=== PATIENT | female | born 1930 | race African-American/Black ===

== ENCOUNTER 2017-03-01 15:03 | Emergency (ER) | payer MEDICAID, MEDICARE ==
[~2017-03-01] VITALS: Ht 167.6 cm; Wt 67.0 kg
[~2017-03-01 15:03] MED LIST: AMLODIPINE; CARI350T27 PO; CYCL30DR EACHEYE; DOCU-138; ERGO500043 PO; GABA-531; HCTZ; HYDR25TA PO; LIDODERM; OMEP20CA10; PRED10DR7; SIMV40TA5 PO; SIMVASTATIN; [UNRECOGNIZED DRUG - CODE]
[2017-03-01 16:50] LABS: BASOPHILS % 0.9 % (0.0-2.0); EOSINOPHILS % 0.4 % (0.0-5.0); HEMATOCRIT. 40.6 % (36.0-48.0); HEMOGLOBIN. 13.3 g/dL (12.0-16.0); LYMPHOCYTES % 23.7 % (20.0-50.0); MEAN CORPUSCULAR HEMOGLOBIN 31.6 pg (28.0-32.0); MEAN CORPUSCULAR HGB CONC 32.7 g/dL (31.0-37.0); MEAN CORPUSCULAR VOLUME 96.6 fL (81.0-99.0); MONOCYTES % 7.7 % (2.0-8.0); NEUTROPHILS % 67.3 % (40.0-76.0); RED CELL DISTRIBUTION WIDTH 13.7 % (11.6-14.6); WHITE BLOOD COUNT 4.9 x1000/uL (4.5-11.0)
[2017-03-01 16:53] LABS: CHLORIDE 104 mEq/L (98-107); DIFFERENTIAL COMMENT 1; INDEX HEMOLYSI 1 (1-3); INDEX ICTERIC 1 (1-4); INDEX LIPEMIC 1 (1-3); INR 1.2; PROTHROMBIN TIME 12.4 sec
[2017-03-01 17:03] LABS: ALANINE AMINOTRANSFERASE 22 IU/L (13-61); ALBUMIN 3.9 g/dL (3.4-5.0); ANION GAP 11; CALCIUM 9.4 mg/dL (8.5-10.1); CARBON DIOXIDE 30 mEq/L (21-32); NT PRO B-TYPE NATRIURETIC PEP 126 pg/mL (5-125); TROPONIN I < 0.02 ng/mL (0.00-0.04); UREA NITROGEN BLOOD 17 mg/dL (7-21); eGFR 57 mL/min (>60)
[2017-03-01 17:06] LABS: MEAN PLATELET VOLUME 10.2 fl (7.4-10.4); PLATELET 129 x1000/uL (130-400)
[2017-03-01] MEDS ORDERED: ASPIRIN 81MG TABLET PO ONE (17:45)
[2017-03-01 19:16] VITALS: BP 120/65
== END 2017-03-01 19:21 | disposition home or self-care (01) ==
LOC: ER 15:03
DX: R07.89 Other chest pain (principal); K21.9 Gastro-esophageal reflux disease without esophagitis; E78.00 Pure hypercholesterolemia, unspecified; I10 Essential (primary) hypertension; Z98.1 Arthrodesis status; Z87.891 Personal history of nicotine dependence
CPT/HCPCS: 36415; 71010; 80053; 83880; 84484; 85025; 85610; 93005; 99285

== ENCOUNTER 2017-03-09 10:12 | Emergency (ER) | payer MEDICARE ==
[~2017-03-09] VITALS: Ht 170.2 cm; Wt 66.0 kg
[2017-03-09] MEDS ORDERED: IOHEXOL-300 100 ML BOTTLE ONE (10:55)
[2017-03-09] MEDS ORDERED: SODIUM CHLORIDE 0.9% 10ML VIAL ONE (10:55)
[2017-03-09] MEDS ORDERED: FAMOTIDINE 20MG/2ML VIAL IV STA (11:32)
[2017-03-09 12:13] LABS: CLARITY URINE CLEAR (CLEAR); COLOR URINE YELLOW (YELLOW); GLUCOSE URINE NEGATIVE (NEGATIVE); KETONES URINE TRACE (NEGATIVE); LEUKOCYTE ESTERASE URINE NEGATIVE (NEGATIVE); NITRITE URINE NEGATIVE (NEGATIVE); OCCULT BLOOD URINE NEGATIVE (NEGATIVE); PH URINE 7.5 (4.5-8.0); PROTEIN URINE NEGATIVE (NEGATIVE); SPECIFIC GRAVITY URINE 1.014 (1.005-1.030); UROBILINOGEN URINE 0.2 E.U./dL (0.2-1.0)
[2017-03-09 12:23] LABS: DIFFERENTIAL COMMENT 0; EOSINOPHILS % 0.4 % (0.0-5.0); HEMATOCRIT. 39.7 % (36.0-48.0); HEMOGLOBIN. 13.1 g/dL (12.0-16.0); LYMPHOCYTES % 20.8 % (20.0-50.0); MEAN CORPUSCULAR HEMOGLOBIN 31.4 pg (28.0-32.0); MEAN CORPUSCULAR HGB CONC 33.1 g/dL (31.0-37.0); MEAN CORPUSCULAR VOLUME 95.1 fL (81.0-99.0); MEAN PLATELET VOLUME 10.4 fl (7.4-10.4); MONOCYTES % 4.5 % (2.0-8.0); NEUTROPHILS % 73.3 % (40.0-76.0); PLATELET 129 x1000/uL (130-400); RED BLOOD CELL COUNT 4.18 mill/uL (4.2-5.4); RED CELL DISTRIBUTION WIDTH 13.6 % (11.6-14.6); WHITE BLOOD COUNT 5.3 x1000/uL (4.5-11.0)
[2017-03-09 12:29] LABS: INR 1.2; PROTHROMBIN TIME 12.6 sec
[2017-03-09 12:30] LABS: CHLORIDE 106 mEq/L (98-107); INDEX HEMOLYSI 1 (1-3); INDEX ICTERIC 1 (1-4); INDEX LIPEMIC 1 (1-3)
[2017-03-09 12:33] LABS: ALBUMIN 3.8 g/dL (3.4-5.0); CALCIUM 9.1 mg/dL (8.5-10.1)
[2017-03-09 12:40] LABS: ALANINE AMINOTRANSFERASE 24 IU/L (13-61); ANION GAP 10; CARBON DIOXIDE 28 mEq/L (21-32); LIPASE 184 IU/L (73-393); UREA NITROGEN BLOOD 17 mg/dL (7-21); eGFR > 60 mL/min (>60)
[2017-03-09 12:42] LABS: TROPONIN I < 0.02 ng/mL (0.00-0.04)
[2017-03-09 14:49] VITALS: BP 133/76
== END 2017-03-09 14:54 | disposition home or self-care (01) ==
LOC: ER 11:10
DX: R10.11 Right upper quadrant pain (principal); K21.9 Gastro-esophageal reflux disease without esophagitis; E78.00 Pure hypercholesterolemia, unspecified; I10 Essential (primary) hypertension; Z79.899 Other long term (current) drug therapy; Z87.891 Personal history of nicotine dependence; Z90.710 Acquired absence of both cervix and uterus
CPT/HCPCS: 36415; 74177; 80053; 81003; 83605; 83690; 84484; 85025; 85610; 93005; 96374; 99285; A4216; J3490; Q9967

== ENCOUNTER 2017-03-25 10:57 | Emergency (ER) | payer MEDICARE, MEDICAID ==
[~2017-03-25] VITALS: Ht 170.2 cm; Wt 66.0 kg
[2017-03-25 11:57] LABS: BASOPHILS % 0.6 % (0.0-2.0); DIFFERENTIAL COMMENT 0; EOSINOPHILS % 0.8 % (0.0-5.0); HEMATOCRIT. 38.8 % (36.0-48.0); HEMOGLOBIN. 12.8 g/dL (12.0-16.0); LYMPHOCYTES % 24.3 % (20.0-50.0); MEAN CORPUSCULAR HEMOGLOBIN 31.5 pg (28.0-32.0); MEAN CORPUSCULAR VOLUME 95.5 fL (81.0-99.0); MEAN PLATELET VOLUME 9.4 fl (7.4-10.4); NEUTROPHILS % 66.3 % (40.0-76.0); PLATELET 142 x1000/uL (130-400); RED BLOOD CELL COUNT 4.06 mill/uL (4.2-5.4); RED CELL DISTRIBUTION WIDTH 13.5 % (11.6-14.6); WHITE BLOOD COUNT 4.4 x1000/uL (4.5-11.0)
[2017-03-25 12:04] LABS: CHLORIDE 103 mEq/L (98-107); INDEX HEMOLYSI 1 (1-3); INDEX ICTERIC 1 (1-4); INDEX LIPEMIC 1 (1-3)
[2017-03-25 12:06] LABS: INR 1.2; PROTHROMBIN TIME 12.7 sec
[2017-03-25 12:12] LABS: ALANINE AMINOTRANSFERASE 23 IU/L (13-61); ANION GAP 13; CALCIUM 9.4 mg/dL (8.5-10.1); CARBON DIOXIDE 28 mEq/L (21-32); UREA NITROGEN BLOOD 22 mg/dL (7-21); eGFR > 60 mL/min (>60)
[2017-03-25 13:17] VITALS: BP 128/70
== END 2017-03-25 13:46 | disposition home or self-care (01) ==
LOC: ER 12:19
DX: H92.03 Otalgia, bilateral (principal); R79.89 Other specified abnormal findings of blood chemistry; K21.9 Gastro-esophageal reflux disease without esophagitis; E78.00 Pure hypercholesterolemia, unspecified; I10 Essential (primary) hypertension; Z79.899 Other long term (current) drug therapy; Z90.710 Acquired absence of both cervix and uterus; Z87.891 Personal history of nicotine dependence
CPT/HCPCS: 36415; 70450; 71010; 80053; 85025; 85610; 85651; 93005; 99285

== ENCOUNTER 2017-05-14 10:17 | Emergency (ER) | payer MEDICARE ==
[~2017-05-14] VITALS: Ht 167.6 cm; Wt 72.0 kg
[~2017-05-14 10:17] MED LIST changes: +ERGO500013 PO; -ERGO500043 PO
[2017-05-14 11:10] VITALS: BP 130/60
[2017-05-14] MEDS ORDERED: ACETAMINOPHEN 325MG TABLET PO ONE (11:45)
== END 2017-05-14 14:01 | disposition home or self-care (01) ==
LOC: ER 12:19
DX: H61.23 Impacted cerumen, bilateral (principal); I10 Essential (primary) hypertension; E78.00 Pure hypercholesterolemia, unspecified; Z90.710 Acquired absence of both cervix and uterus; Z98.890 Other specified postprocedural states; Z90.89 Acquired absence of other organs
CPT/HCPCS: 99282

== ENCOUNTER → 2017-07-07 | Outpatient (CLI) | payer MEDICARE, MEDICAID | END | disposition home or self-care (01) | LOC: MAMMO 10:12 | PROVIDERS: ATTEND Internal Medicine | DX: Z12.31 Encounter for screening mammogram for malignant neoplasm of breast (principal) | CPT/HCPCS: G0202 ==

== ENCOUNTER 2017-07-25 10:28 | Emergency (ER) | payer MEDICARE, MEDICAID ==
[~2017-07-25] VITALS: Ht 167.6 cm; Wt 65.0 kg
[2017-07-25] MEDS ORDERED: SODIUM CHLORIDE 0.9% 500 ML IV ONE (11:08)
[2017-07-25 11:37] LABS: BASOPHILS % 0.6 % (0.0-2.0); EOSINOPHILS % 0.6 % (0.0-5.0); HEMATOCRIT. 37.5 % (36.0-48.0); HEMOGLOBIN. 12.5 g/dL (12.0-16.0); LYMPHOCYTES % 22.4 % (20.0-50.0); MEAN CORPUSCULAR HEMOGLOBIN 31.4 pg (28.0-32.0); MEAN CORPUSCULAR VOLUME 94.1 fL (81.0-99.0); MEAN PLATELET VOLUME 9.8 fl (7.4-10.4); MONOCYTES % 7.8 % (2.0-8.0); NEUTROPHILS % 68.6 % (40.0-76.0); PLATELET 127 x1000/uL (130-400); RED BLOOD CELL COUNT 3.98 mill/uL (4.2-5.4); RED CELL DISTRIBUTION WIDTH 13.6 % (11.6-14.6)
[2017-07-25 11:44] LABS: INR 1.2; PROTHROMBIN TIME 12.5 sec (9.4-11.6)
[2017-07-25 11:45] LABS: CHLORIDE 104 mEq/L (98-107)
[2017-07-25 11:54] LABS: CARBON DIOXIDE 28 mEq/L (21-32); CREATINE KINASE 86 IU/L (26-192); TROPONIN I < 0.02 ng/mL (0.00-0.04)
[2017-07-25 12:36] LABS: CLARITY URINE CLOUDY (CLEAR); COLOR URINE YELLOW (YELLOW); GLUCOSE URINE NEGATIVE (NEGATIVE); KETONES URINE NEGATIVE (NEGATIVE); LEUKOCYTE ESTERASE URINE 3+ (NEGATIVE); NITRITE URINE NEGATIVE (NEGATIVE); OCCULT BLOOD URINE NEGATIVE (NEGATIVE); PH URINE 6.5 (4.5-8.0); PROTEIN URINE NEGATIVE (NEGATIVE); SPECIFIC GRAVITY URINE 1.019 (1.005-1.030)
[2017-07-25] MEDS ORDERED: CEFTRIAXONE SODIUM 1 G/VIAL IM ONE (13:15)
[2017-07-25] MEDS ORDERED: LIDOCAINE HCL 1% 20ML VIAL (Pyxis) INJ INFIL ONE (13:45)
[2017-07-25] MEDS ORDERED: ACETAMINOPHEN 325MG TABLET PO ONE (14:30)
[2017-07-25 14:35] VITALS: BP 153/80
== END 2017-07-25 14:52 | disposition home or self-care (01) ==
LOC: ER 10:28
DX: M54.16 Radiculopathy, lumbar region (principal); N39.0 Urinary tract infection, site not specified; I10 Essential (primary) hypertension; G47.30 Sleep apnea, unspecified; Z90.710 Acquired absence of both cervix and uterus; Z98.890 Other specified postprocedural states
CPT/HCPCS: 36415; 80053; 81001; 82550; 84484; 85025; 85610; 93005; 96360; 96372; 99285; J0696; J3490; J7030; J7040

== ENCOUNTER 2017-12-27 11:48 | Emergency (ER) | payer MEDICARE, MEDICAID ==
[~2017-12-27] VITALS: Ht 167.6 cm; Wt 64.0 kg
[2017-12-27 13:04] LABS: BASOPHILS % 0.5 % (0.0-2.0); EOSINOPHILS % 0.2 % (0.0-5.0); HEMATOCRIT. 38.6 % (36.0-48.0); HEMOGLOBIN. 12.5 g/dL (12.0-16.0); LYMPHOCYTES % 14.4 % (20.0-50.0); MEAN CORPUSCULAR HEMOGLOBIN 30.8 pg (28.0-32.0); MEAN CORPUSCULAR VOLUME 95.4 fL (81.0-99.0); MEAN PLATELET VOLUME 9.9 fl (7.4-10.4); MONOCYTES % 5.5 % (2.0-8.0); NEUTROPHILS % 79.4 % (40.0-76.0); PLATELET 141 x1000/uL (130-400); RED BLOOD CELL COUNT 4.05 mill/uL (4.2-5.4); RED CELL DISTRIBUTION WIDTH 14.1 % (11.6-14.6)
[2017-12-27 13:20] LABS: CARBON DIOXIDE 29 mEq/L (21-32); CHLORIDE 106 mEq/L (98-107); TROPONIN I < 0.02 ng/mL (0.00-0.04)
[2017-12-27 14:07] VITALS: BP 113/71
== END 2017-12-27 14:39 | disposition home or self-care (01) ==
LOC: ER 12:14
DX: R06.00 Dyspnea, unspecified (principal); R00.1 Bradycardia, unspecified; I11.9 Hypertensive heart disease without heart failure; E78.00 Pure hypercholesterolemia, unspecified; G47.30 Sleep apnea, unspecified; Z90.710 Acquired absence of both cervix and uterus
CPT/HCPCS: 36415; 71045; 80053; 83880; 84484; 85025; 87804; 93005; 99285

== ENCOUNTER 2018-04-12 12:25 | Emergency (ER) | payer MEDICARE, MEDICAID ==
[~2018-04-12] VITALS: Ht 170.2 cm; Wt 70.0 kg
[2018-04-12 13:13] LABS: BASOPHILS % 0.4 % (0.0-2.0); EOSINOPHILS % 0.4 % (0.0-5.0); HEMATOCRIT. 40.8 % (36.0-48.0); HEMOGLOBIN. 13.7 g/dL (12.0-16.0); LYMPHOCYTES % 15.9 % (20.0-50.0); MEAN CORPUSCULAR VOLUME 95.2 fL (81.0-99.0); MEAN PLATELET VOLUME 9.8 fl (7.4-10.4); MONOCYTES % 6.4 % (2.0-8.0); NEUTROPHILS % 76.9 % (40.0-76.0); PLATELET 150 x1000/uL (130-400); RED BLOOD CELL COUNT 4.29 mill/uL (4.2-5.4); RED CELL DISTRIBUTION WIDTH 13.8 % (11.6-14.6)
[2018-04-12 13:19] LABS: CHLORIDE 106 mEq/L (98-107)
[2018-04-12 13:23] LABS: ETHANOL BLOOD < 10 mg/dL
[2018-04-12 15:34] LABS: CLARITY URINE CLEAR (CLEAR); COLOR URINE YELLOW (YELLOW); KETONES URINE NEGATIVE (NEGATIVE); LEUKOCYTE ESTERASE URINE TRACE (NEGATIVE); NITRITE URINE NEGATIVE (NEGATIVE); OCCULT BLOOD URINE NEGATIVE (NEGATIVE); PH URINE 6.5 (4.5-8.0); PROTEIN URINE NEGATIVE (NEGATIVE); SPECIFIC GRAVITY URINE 1.014 (1.005-1.030)
[2018-04-12 15:45] LABS: *AMPHETAMINES SCREEN URINE NEGATIVE (NEGATIVE); *BARBITURATES SCREEN URINE NEGATIVE (NEGATIVE); *BENZODIAZEPINES SCREEN URINE NEGATIVE (NEGATIVE); *COCAINE SCREEN URINE NEGATIVE (NEGATIVE); CANNABINOID URINE SCREEN NEGATIVE (NEGATIVE); METHADONE URINE SCREEN NEGATIVE (NEGATIVE); OPIATES URINE SCREEN NEGATIVE (NEGATIVE); PHENCYCLIDINE URINE SCREEN NEGATIVE (NEGATIVE)
[2018-04-12 16:35] VITALS: BP 124/67
== END 2018-04-12 16:51 | disposition home or self-care (01) ==
LOC: ER 13:16
DX: N39.0 Urinary tract infection, site not specified (principal); R53.1 Weakness; M79.605 Pain in left leg; M79.604 Pain in right leg; K21.9 Gastro-esophageal reflux disease without esophagitis; E78.00 Pure hypercholesterolemia, unspecified; I10 Essential (primary) hypertension; Z87.891 Personal history of nicotine dependence
CPT/HCPCS: 36415; 71045; 80053; 80305; 81003; 85025; 99285; G0482

== ENCOUNTER 2018-04-14 12:40 | Emergency (ER) | payer MEDICARE, MEDICAID ==
[~2018-04-14] VITALS: Ht 167.6 cm; Wt 65.0 kg
[2018-04-14 13:25] LABS: CHLORIDE 105 mEq/L (98-107)
[2018-04-14 13:26] LABS: INR 1.2; PROTHROMBIN TIME 12.7 sec (9.4-11.6)
[2018-04-14 13:29] LABS: BASOPHILS % 0.3 % (0.0-2.0); EOSINOPHILS % 0.2 % (0.0-5.0); HEMATOCRIT. 39.1 % (36.0-48.0); HEMOGLOBIN. 13.1 g/dL (12.0-16.0); LYMPHOCYTES % 14.7 % (20.0-50.0); MEAN CORPUSCULAR HEMOGLOBIN 31.8 pg (28.0-32.0); MEAN PLATELET VOLUME 9.8 fl (7.4-10.4); MONOCYTES % 5.5 % (2.0-8.0); NEUTROPHILS % 79.3 % (40.0-76.0); PLATELET 143 x1000/uL (130-400); RED BLOOD CELL COUNT 4.11 mill/uL (4.2-5.4); RED CELL DISTRIBUTION WIDTH 13.7 % (11.6-14.6)
[2018-04-14 14:30] VITALS: BP 137/71
== END 2018-04-14 14:40 | disposition home or self-care (01) ==
LOC: ER 13:32
DX: R53.1 Weakness (principal); R53.81 Other malaise; I10 Essential (primary) hypertension; E78.00 Pure hypercholesterolemia, unspecified; K21.9 Gastro-esophageal reflux disease without esophagitis; R79.1 Abnormal coagulation profile
CPT/HCPCS: 36415; 71045; 80053; 84484; 85025; 85610; 93005; 99285